=== PATIENT | male | born 1960 | race Asian ===

== ENCOUNTER 2020-10-29 19:09 | Emergency (ER) | payer MEDICAID ==
[~2020-10-29] VITALS: Ht 170.2 cm; Wt 61.2 kg
--- NOTE | 2020-10-29 19:10 | NUR ---
Patient triaged and placed in waiting room. VSS and patient appears in no acute distress at this time. Accompanied by son, awaiting available bed, and MD notified of need for MSE.
--- NOTE | 2020-10-29 19:12 | NUR ---
Pt brought by self , A&Ox4, pt presents with L rib pain after he fell few days ago, skin pink and warm, cap refill <3, VSS, respirations even and unlabored
--- NOTE | 2020-10-29 19:30 | NUR ---
Dr Esqueda evaluating patient at bedside
[2020-10-29 19:42] VITALS: BP_SYST 118
[2020-10-29] MEDS ORDERED: HYDROcodone/ACETAMIN 5-325 MG TAB (NORCO/ VICODIN) PO ONE (21:00)
[2020-10-29] MEDS ORDERED: KETOROLAC TROMETHAMINE 60 MG/2 ML VIAL IM ONE (21:00)
[2020-10-29 21:55] VITALS: BP_SYST 118
--- NOTE | 2020-10-29 21:55 | NUR ---
Patient given written and verbal discharge instructions and verbalizes understanding. ER MD discussed with patient the results and treatment provided. Patient in stable condition. ID arm band removed. Rx of Ibuprofen and [place] given. Patient educated on pain management and to follow up with PMD. Pain Scale 3/10 tolerable for pt . Opportunity for questions provided and answered. Medication side effect fact sheet provided.
== END 2020-10-29 21:55 | disposition home or self-care (01) ==
LOC: SED 19:09
DX: R07.89 Other chest pain (principal); W18.39XA Other fall on same level, initial encounter; Y93.89 Activity, other specified; Y92.89 Other specified places as the place of occurrence of the external cause; Y99.8 Other external cause status
CPT/HCPCS: 71250; 76376; 96372; 99284; J1885